=== PATIENT | female | born 1955 | race Caucasian/White ===

== ENCOUNTER 2020-12-02 12:42 | Emergency (ER) | payer MEDICARE, MEDICAID ==
[~2020-12-02] VITALS: Ht 160 cm; Wt 61.0 kg
[2020-12-02 13:02] VITALS: BP 117/53
[2020-12-02] MEDS ORDERED: DICL75TA5 PO ×3 (14:01→14:25)
[2020-12-02] MEDS ORDERED: TRAM50TA3 PO ×3 (14:01→14:25)
== END 2020-12-02 14:30 | disposition home or self-care (01) ==
LOC: ER 12:42
DX: G89.29 Other chronic pain (principal); M54.5 Low back pain
CPT/HCPCS: 99283